=== PATIENT | male | born 1965 | race Caucasian/White ===

== ENCOUNTER 2016-10-08 02:23 | Emergency (ER) | payer OTHER ==
[~2016-10-08] VITALS: Ht 180.3 cm; Wt 83.3 kg
[2016-10-08] MEDS ORDERED: ADENOSINE 6 MG/2 ML ONE ×3 (02:32→02:48)
[2016-10-08] MEDS ORDERED: ONDANSETRON 2MG/ML, 2ML ONE (02:53)
[2016-10-08] MEDS ORDERED: PROPOFOL 10 MG/ML, 20ML ONE (02:53)
[2016-10-08] MEDS ORDERED: SODIUM CHLORIDE 0.9% 1,000ML IVBOLUS ONE (03:00)
[2016-10-08] MEDS ORDERED: ADENOSINE 6 MG/2 ML IVPush ONE ×2 (03:00)
[2016-10-08] MEDS ORDERED: SODIUM CHLORIDE FLUSH 10ML SYR IVF ONE (03:00)
[2016-10-08 03:04] LABS: ASPARTATE AMINO TRANSFERASE 77 U/L (15-37); BLOOD UREA NITROGEN 22 mg/dL (7-18)
[2016-10-08] MEDS ORDERED: MELA1TAB19 SL (03:05)
[2016-10-08] MEDS ORDERED: ONDANSETRON 2MG/ML, 2ML IVPush ONE (03:30)
[2016-10-08 04:26] VITALS: BP 102/60
== END 2016-10-08 04:32 | disposition home or self-care (01) ==
LOC: ED 04:14
DX: I47.1 Supraventricular tachycardia (principal); R07.2 Precordial pain; R00.2 Palpitations
CPT/HCPCS: 36415; 71010; 80053; 83735; 84436; 84443; 85025; 93005; 96361; 96374; 96375; 99152; 99153; 99291; J0153; J2405; J7030